=== PATIENT | male | born 1935 | race American Indian/Alaskan Native ===

== ENCOUNTER 2017-05-22 15:42 | Outpatient (CLI) | payer MEDICARE, OTHER ==
--- NOTE | 2017-05-24 09:33 | Vascular Lab Report ---
LOWER EXTREMITY VENOUS DUPLEX: REASON FOR EXAM: Pain and swelling of the lower extremities. 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 No acute DVT is seen. The remaining veins visualized are freely compressible without evidence of internal echogenicity. Spontaneous and phasic flow is present proximally. COMMENTS ON THE LEFT: All veins visualized are freely compressible without evidence of internal echogenicity. Flow is spontaneous and phasic throughout. 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 No acute DVT seen in either lower extremity.
== END 2017-05-22 15:43 | disposition home or self-care (01) ==
LOC: VAS 15:42
PROVIDERS: ATTEND Family Medicine
DX: I82.811 Embolism and thrombosis of superficial veins of right lower extremity (principal); M79.662 Pain in left lower leg; M79.89 Other specified soft tissue disorders

== ENCOUNTER 2018-05-10 10:30 | Inpatient (IN) | payer MEDICARE, OTHER ==
[2018-05-10] MEDS ORDERED: NACL 0.9% 1000 ML 1,000 ML IV ONE (10:49)
[2018-05-10] MEDS ORDERED: PROTONIX IV ONE (10:56)
--- NOTE | 2018-05-10 10:58 | Emergency Department Report ---
HPI - General Chief Complaint: GI Bleed Time Seen by Provider: 05/10/18 10:50 - HPI HPI: 82-year-old -[place] male presents to the emergency department with a complaint of rectal bleeding and hypotension. The patient was at his primary care physician's office, Dr. Saini, when he was found to have low blood pressure. EMS was called and found the patient to have a blood pressure of 66/39. He was given a 500 mL bolus and his blood pressure is currently 110/54. He denies any current abdominal pain but says that he has had some intermittent ly over the past 2 days, which is when the bleeding started. He does have a history of some type of gastric or intestinal ulcer and last had a GI bleed in 2016 and had some type of procedure done at [facility]. His professor of latin american studies is Dr. Sweet. He has not taken anything for his symptoms hortencia or to arrival. ED Past Medical Hx - Past Medical History Previous Medical History?: Yes Hx Hypertension: Yes (on coreg and amylodipine) Hx Heart Attack/AMI: No Hx Congestive Heart Failure: Yes Hx Diabetes: Yes Hx Deep Vein Thrombosis: Yes (blood clot right leg 2006) Hx GERD: Yes Hx Renal Disease: Yes (Cr. 1.8 K 4.2) Hx Arthritis: Yes (RIGHT HIP) Hx Seizures: No Hx Asthma: No Hx COPD: No - Surgical History Hx Coronary Stent: Yes (CARDIAC [id number]) Hx Pacemaker: Yes (x 10 years functioning well pacing) Hx Internal Defibrillator: No - Social History Smoking Status: Former Smoker Substance Use Type: None - Medications Home Medications: Home Medications Medication Instructions Recorded Confirmed Last Taken Type Furosemide [Lasix] 40 mg PO DAILY 05/21/13 01/18/15 10/15/14 History Lisinopril [Zestril] 40 mg PO DAILY 05/21/13 01/18/15 10/15/14 History Rivaroxaban [Xarelto] 20 mg PO QDAY 04/26/14 01/18/15 10/16/14 History Amlodipine Besylate [amLODIPine 5 mg PO DAILY #30 powder 05/02/14 01/18/15 10/15/14 Rx Besylate] Simvastatin 20 mg PO HS #30 tablet 05/02/14 01/18/15 10/15/14 Rx Aspirin EC [Aspirin Enteric Coated 81 mg PO QDAY #30 tablet 01/21/15 Unknown Rx TAB] Carvedilol [Coreg] 25 mg PO BID #60 tablet 01/21/15 Unknown Rx Digoxin [Lanoxin] 0.125 mg PO DAILY #30 tablet 01/21/15 Unknown Rx Insulin Glargine,Hum.rec.anlog 30 unit SQ HS #2 ml 01/21/15 Unknown Rx [Lantus Solostar] Iron Fum,Ps/Folic/Bcomp,C No.9 1 each PO DAILY #30 capsule 01/21/15 Unknown Rx [Integra Plus Capsule] Pantoprazole [Protonix TAB] 40 mg PO QDAY #30 tablet 01/21/15 Unknown Rx Sitagliptin Phosphate [Januvia] 50 mg PO DAILY #30 tablet 01/21/15 Unknown Rx glipiZIDE [glipiZIDE XL] 10 mg PO BID #60 tab.er.24 01/21/15 Unknown Rx raNITIdine HCl [Zantac 300 MG TAB] 300 mg PO DAILY #30 tablet 01/21/15 Unknown Rx ED Review of Systems ROS: Stated complaint: HYPOTENSION Other details as noted in HPI Comment: All other systems reviewed and negative Constitutional: denies: chills, fever Eyes: denies: eye pain, vision change ENT: denies: ear pain, throat pain Respiratory: denies: cough, shortness of breath Cardiovascular: denies: chest pain, palpitations Gastrointestinal: abdominal pain, melena. denies: vomiting Genitourinary: denies: urgency, dysuria Musculoskeletal: denies: back pain, arthralgia Skin: denies: rash, lesions Neurological: denies: headache, weakness Physical Exam - Physical Exam Vital Signs: Vital Signs 05/10/18 10:45 Pulse Rate 81 Respiratory 17 Rate Blood Pressure 110/54 O2 Sat by Pulse 99 Oximetry Physical Exam: GENERAL: The patient is well-developed well-nourished. HEENT: Normocephalic. Atraumatic. Patient has moist mucous membranes. EYES: Extraocular motions are intact. Pupils are equal and reactive to light bilaterally. NECK: Supple. Trachea is midline. CHEST/LUNGS: Clear to auscultation. There is no respiratory distress noted. HEART/CARDIOVASCULAR: Regular. There is no tachycardia. There is no obvious murmur. ABDOMEN: Abdomen is soft, nontender. Patient has normal bowel sounds. There is no abdominal distention. SKIN: Skin is warm and dry. NEURO: The patient is awake, alert, and oriented. The patient is cooperative. The patient has no focal neurologic deficits. The patient has normal speech. MUSCULOSKELETAL: There is no tenderness or deformity. There is no limitation range of motion. There is no evidence of acute injury. RECTAL: No hemorrhoids or lesions seen. Patient does have melanotic stool that is positive on guaiac testing. ED Course Vital Signs 05/10/18 10:45 Pulse Rate 81 Respiratory 17 Rate Blood Pressure 110/54 O2 Sat by Pulse 99 Oximetry - Consultations Consultation #1: 05/10/18 17:19 Earlier today I spoke with the professor of latin american studies on-call, Dr. Ponce. He agrees with the plan for a Protonix bolus and drip and he will evaluate the patient for endoscopy and will consult on the patient. ED Medical Decision Making - Lab Data Result diagrams: 05/10/18 10:59 05/10/18 13:07 - Radiology Data Radiology results: image reviewed interpreted by me: X-ray of the abdomen shows nonspecific nonobstructive bowel gas - Medical Decision Making Patient presents to the emergency department with some melena and he had an episode of hypotension and his primary care physician's office. Patient's blood pressure has been stable since arrival to the emergency department. Labs have been mostly unremarkable except for a leukocytosis of 18,000. His hemoglobin appears stable as well at about 13. He was placed on a Protonix bolus and drip. Gastroenterology was contacted and will consult on the patient and potentially will take him for endoscopy today. The patient will be admitted to the hospital for further evaluation and treatment was accepted for admission by the hospitalist, Dr. Osullivan. - Differential Diagnosis diverticulosis, gastric or duodenal ulcer, malignancy, peptic ulcer disease Critical Care Time: Yes Critical care time in (mins) excluding proc time.: 31 Critical care attestation.: If time is entered above; I have spent that time in minutes in the direct care of this critically ill patient, excluding procedure time. Critical care time was spent on this patient during his initial evaluation, multiple re- evaluations, ordering and interpretation of labs and imaging, ordering of PPI bolus and drip, discussion with the professor of latin american studies. Critical Care Time: 31 minutes ED Disposition Clinical Impression: Melena GI bleeding Qualifiers: GI bleed type/associated pathology: melena Qualified Code(s): K92.1 - Melena Disposition: [id number] OP ADMIT IP TO THIS HOSP Is pt being admited?: Yes Condition: Fair
[2018-05-10] MEDS ORDERED: PROTONIX 80 MG in NACL 0.9% 100 ML IV SCH (11:00)
--- NOTE | 2018-05-10 12:09 | XRay Report ---
ABDOMEN, 2 views: History: Abdominal pain. There is no evidence of free air beneath the diaphragms. The gas pattern within the abdomen is unremarkable. There is no evidence of bowel dilatation, significant air-fluid levels, or pathologic calcifications. Organ shadows are unremarkable. IMPRESSION: Unremarkable abdomen.
[2018-05-10 12:21] LABS: Basophils % (Auto) 0.1 % (0.0-1.8); Eosinophils % (Auto) 0.1 % (0.0-4.3); Hematocrit 42.9 % (35.5-45.6); Hemoglobin 13.7 gm/dl (11.8-15.2); Lymphocytes # (Auto) 1.7 K/mm3 (1.2-5.4); Lymphocytes % (Auto) 9.2 % (13.4-35.0); Mean Corpuscular HGB Conc 32 % (32-34); Mean Corpuscular Volume 79 fl (84-94); Monocytes # (Auto) 1.3 K/mm3 (0.0-0.8); Monocytes % (Auto) 6.7 % (0.0-7.3); Platelet Count 175 K/mm3 (140-440); Red Blood Count 5.41 M/mm3 (3.65-5.03); Red Cell Distribution Width 15.9 % (13.2-15.2)
[2018-05-10 12:28] LABS: INR 1.17 (0.87-1.13)
[2018-05-10 12:29] LABS: Partial Thromboplastin Time 28.5 Sec. (24.2-36.6)
[2018-05-10 12:53] LABS: Alanine Aminotransferase TNR units/L (7-56); Albumin TNR g/dL (3.9-5); BUN/Creatinine Ratio TNR; Blood Urea Nitrogen TNR mg/dL (9-20); Calcium TNR mg/dL (8.4-10.2)
[2018-05-10 12:54] LABS: Hemolysis Index TNR
[2018-05-10 14:10] LABS: Albumin 3.2 g/dL (3.9-5); BUN/Creatinine Ratio 48; Blood Urea Nitrogen 58 mg/dL (9-20); Calcium 8.6 mg/dL (8.4-10.2); Hemolysis Index 162
[2018-05-10 14:33] LABS: Alanine Aminotransferase 14 units/L (7-56)
--- NOTE | 2018-05-10 16:55 | Anesthesia Day of Surgery ---
Anesthesia Day of Surgery - Day of Surgery Patient Examined: Yes Patient H&P Reviewed: Yes Patient is NPO: Yes Beta Blockers: No (pt has been having hypotension )
[2018-05-10] MEDS ORDERED: DIPRIVAN 10 MG/ML IV ONE (16:56)
[2018-05-10] MEDS ORDERED: VERSED ONE (16:56)
[2018-05-10] MEDS ORDERED: XYLOCAINE 2% INFILTRATI ONE (16:57)
--- NOTE | 2018-05-10 16:57 | Anesthesia Consultation ---
Anesthesia Consult and Med Hx Date of service: 05/10/18 - Airway Anesthetic Teeth Evaluation: Good ROM Head & Neck: Adequate Mental/Hyoid Distance: Adequate Mallampati Class: Class III Intubation Access Assessment: Good - Pulmonary Exam CTA: Yes - Cardiac Exam Cardiac Exam: No Murmur - Pre-Operative Health Status ASA Pre-Surgery Classification: ASA3 Proposed Anesthetic Plan: MAC - Pulmonary Hx Smoking: Yes (quit 1969) Hx Asthma: No COPD: No Hx Sleep Apnea: No - Cardiovascular System Hx Hypertension: Yes (on coreg and amylodipine) Hx Coronary Artery Disease: Yes (has stent in place. ) Hx Heart Attack/AMI: No Hx Angina: No Hx Cardia Arrhythmia: Yes (atrial fibrillation, on Xarelto) Hx Pacemaker: Yes (x 10 years functioning well pacing) Hx Internal Defibrillator: No Hx Heart Murmur: Yes Hx Peripheral Vascular Disease: Yes (both legs) - Central Nervous System Hx Seizures: No CVA: No Hx Psychiatric Problems: No - Gastrointestinal Hx Ulcer: Yes - Endocrine Hx Renal Disease: Yes (Cr. 1.8 K 4.2) Hx Insulin Dependent Diabetes: Yes - Hematic Hx Anemia: Yes - Other Systems Hx Cancer: Yes (prostate , s/p prostate surgery)
[2018-05-10] MEDS ORDERED: WATER FOR IRRIG STERILE IR ONE (17:48)
--- NOTE | 2018-05-10 18:00 | Gastroenterology Consultation ---
History of Present Illness - Reason for Consult Consult date: 05/10/18 melena Requesting physician: ELIZABETH CHATMAN - History of Present Illness Mr Mike is a pleasant 82 yo male with history PUD per his report presenting with fatigue and melena. Patient reports melena with black stools since Monday, about 2-3BM/day no overt bleeding, no significant abdominal pain though does report nausea which is mild and post-prandial and intermittent without alleviating factors. Reports also feeling very fatigue and weak. Not on blood thinners at home. Was hypotensive in the ER, Hgb was normal at 13 though that is prior to resuscitation and suspect repeat will be lower. - Past Medical History Hx Hypertension: Yes (on coreg and amylodipine) Hx Congestive Heart Failure: Yes Hx Diabetes: Yes Hx Deep Vein Thrombosis: Yes (blood clot right leg 2006) Hx GERD: Yes Hx Renal Disease: Yes (Cr. 1.8 K 4.2) Hx Arthritis: Yes (RIGHT HIP) - Surgical History Hx Coronary Stent: Yes (CARDIAC [id number]) Hx Pacemaker: Yes (x 10 years functioning well pacing) Hx Internal Defibrillator: No - Social History Smoking Status: Former Smoker Substance Use Type: None Past History Past Medical History: No medical history, other (see above, with addition of PUD) Past Surgical History: Other (see above) Social history: other (see above) Family history: other (no history gastric CA) Medications and Allergies Allergies Allergy/AdvReac Type Severity Reaction Status Date / Time No Known Allergies Allergy Verified 07/15/13 12:09 Home Medications Medication Instructions Recorded Confirmed Last Taken Type Furosemide [Lasix] 40 mg PO DAILY 05/21/13 01/18/15 10/15/14 History Lisinopril [Zestril] 40 mg PO DAILY 05/21/13 01/18/15 10/15/14 History Amlodipine Besylate [amLODIPine 5 mg PO DAILY #30 powder 05/02/14 01/18/15 10/15/14 Rx Besylate] Simvastatin 20 mg PO HS #30 tablet 05/02/14 01/18/15 10/15/14 Rx Aspirin EC [Aspirin Enteric Coated 81 mg PO QDAY #30 tablet 01/21/15 Unknown Rx TAB] Carvedilol [Coreg] 25 mg PO BID #60 tablet 01/21/15 Unknown Rx Digoxin [Lanoxin] 0.125 mg PO DAILY #30 tablet 01/21/15 Unknown Rx Insulin Glargine,Hum.rec.anlog 30 unit SQ HS #2 ml 01/21/15 Unknown Rx [Lantus Solostar] Iron Fum,Ps/Folic/Bcomp,C No.9 1 each PO DAILY #30 capsule 01/21/15 Unknown Rx [Integra Plus Capsule] Pantoprazole [Protonix TAB] 40 mg PO QDAY #30 tablet 01/21/15 Unknown Rx Sitagliptin Phosphate [Januvia] 50 mg PO DAILY #30 tablet 01/21/15 Unknown Rx glipiZIDE [glipiZIDE XL] 10 mg PO BID #60 tab.er.24 01/21/15 Unknown Rx raNITIdine HCl [Zantac 300 MG TAB] 300 mg PO DAILY #30 tablet 01/21/15 Unknown Rx Active Meds: Active Medications Pantoprazole Sodium 80 mg/ (Sodium Chloride) 100 mls @ 10 mls/hr IV DIRECT FILI Last Admin: 05/10/18 11:45 Dose: 8 mg/hr, 10 mls/hr Documented by: Sodium Chloride (Nacl 0.9% 1000 Ml) 1,000 mls @ 50 mls/hr IV DIRECT FILI Review of Systems - Review of Systems All systems: negative (10 systems reviewed and negative except as mentioned above in the HPI) Exam - Constitutional Vital Signs: Temp Pulse Resp BP Pulse Ox 97.7 F 87 13 121/72 100 05/10/18 16:45 05/10/18 16:45 05/10/18 16:45 05/10/18 16:45 05/10/18 16:45 General appearance: no acute distress - EENT Eyes: PERRL ENT: hearing intact - Neck Neck: supple - Respiratory Respiratory: bilateral: CTA - Cardiovascular Rhythm: regular Extremities: No edema - Gastrointestinal General gastrointestinal: Present: soft, non-tender Rectal Exam: deferred - Integumentary Integumentary: Present: warm, dry - Musculoskeletal Musculoskeletal: normal - Neurologic Neurological: alert and oriented x3 - Psychiatric Psychiatric: appropriate mood/affect - Labs CBC & Chem 7: 05/10/18 10:59 05/10/18 13:07 Lab Results: Laboratory Results - last 24 hr 05/10/18 05/10/18 05/10/18 10:59 10:59 10:59 WBC 18.9 H RBC 5.41 H Hgb 13.7 Hct 42.9 MCV 79 L MCH 25 L MCHC 32 RDW 15.9 H Plt Count 175 Lymph % (Auto) 9.2 L Polk % (Auto) 6.7 Eos % (Auto) 0.1 Baso % (Auto) 0.1 Lymph # 1.7 Polk # 1.3 H Eos # 0.0 Baso # 0.0 Seg Neutrophils % 83.9 H Seg Neutrophils # 15.9 H PT 15.7 H INR 1.17 H APTT 28.5 Sodium TNR Potassium TNR Chloride TNR Carbon Dioxide TNR Anion Gap TNR BUN TNR Creatinine TNR Estimated GFR TNR BUN/Creatinine Ratio TNR Glucose TNR Calcium TNR Total Bilirubin TNR AST TNR ALT TNR Alkaline Phosphatase TNR Total Protein TNR Albumin TNR Albumin/Globulin Ratio TNR Lipase TNR Blood Type Antibody Screen 05/10/18 05/10/18 10:59 13:07 WBC RBC Hgb Hct MCV MCH MCHC RDW Plt Count Lymph % (Auto) Polk % (Auto) Eos % (Auto) Baso % (Auto) Lymph # Polk # Eos # Baso # Seg Neutrophils % Seg Neutrophils # PT INR APTT Sodium 133 L Potassium 5.5 H Chloride 100.5 Carbon Dioxide 19 L Anion Gap 19 BUN 58 H Creatinine 1.2 Estimated GFR > 60 BUN/Creatinine Ratio 48 Glucose 149 H Calcium 8.6 Total Bilirubin 0.80 AST 36 ALT 14 Alkaline Phosphatase 73 Total Protein 7.0 Albumin 3.2 L Albumin/Globulin Ratio 0.8 Lipase 60 Blood Type B POSITIVE Antibody Screen Negative Assessment and Plan 1. Melena 2. Hypotension 3. Personal history peptic ulcer disease Patient at elevated risk for UGI bleed as source of melena, and having active melena, therefore requires urgent EGD for suspicion for active GI bleed. Suspect the repeat Hgb will be lower as he is fluid resuscitated. Highest likelihood is PUD, also in Ddx is AVM, malignancy, etc. Continue PPI, final recs based upon results from urgent EGD
[2018-05-10] MEDS ORDERED: NEO SYNEPHRINE/NS Syringe(OR USE) IV ONE (18:10)
--- NOTE | 2018-05-10 18:10 | Operative Report ---
Operative Report Operative Report: Date 05/10/18 SURGEON: Godfrey Ponce MD EGD with biopsy REPORT PREOPERATIVE DIAGNOSIS and POSTOPERATIVE DIAGNOSIS: Melena, upper GI bleed ESTIMATED BLOOD LOSS: minimal DESCRIPTION OF PROCEDURE: A high-resolution EGD scope was passed through the oropharynx, esophagus, stomach, and second portion of duodenum. The scope was carefully withdrawn. Retroflexion was performed in the stomach. At the end of the procedure, the scope was cleaned using normal technique. Vital signs monitored continuously throughout. SEDATION: Provided by Anesthesiology [facility]. COMPLICATIONS: None. FINDINGS: * Normal second portion of the duodenum * Very large, cratered and deep ulcer in the anterior wall of the duodenal bulb, about 2cm in diameter, overlying heme but no active bleeding and no visible vessel. Edges were heaped up. Multiple biopsies taken from the edges of the ulcer (not the bed due to concern for causing rupture/bleeding) * Severe gastritis of the antrum and body with erosions and erythema and edema. Biopsies were taken to rule out H. Pylori infection. A total of 6 biopsies were taken, 2 from the antrum, 1 from the incisura, 2 from the body. * GE Junction at 45cm from the incisors * Remainder of the exam was normal RECOMMENDATIONS: * PPI drip for 48 hours and TID carafate for the next 30 days, monitor Hgb Q12 hours. Then if stable and no more bleeding switch to protonix 40mg PO BID and discharge home with close outpatient follow up in 1-2 weeks. * F/u path results * Will start on full liquid diet
[2018-05-10] MEDS: NACL 0.9% 1000 ML 1,000 ML IV SCH (19:54)
[2018-05-10] MEDS: CARAFATE PO SCH (22:40)
--- NOTE | 2018-05-11 06:57 | History and Physical Report ---
History of Present Illness Date of examination: 05/11/18 Date of admission: 05/10/18 13:44 Chief complaint: Rectal bleeding and hypotension. History of present illness: Patient is an 82-year-old gentleman who has a history of recurrent GI bleeding from duodenal ulcer last one being in 2016, hypertension, congestive heart failure status post AICD placement 10 years ago, coronary artery disease status post stent placement, diabetes, DVT, gastroesophageal reflux disease, and arthritis presented to my office yesterday with a history of melena, feeling weak and fatigued. Patient could not maintain an alert moment in the office, always falling asleep in between discussions. Patient was also found to be hypertensive. EMS was called in. Patient was transfered to the emergency department of [facility] where blood pressure was found to be 66/39. He was given 500 mL bolus of normal saline. Blood pressure improved to 110/54. Admission was requested. Patient denies anyh persistent abdominal pain, though occassional epigastric pain some days prior to presentation. Nauseated but no vomiting. Denies any chest pain, orthopnea or paroxysmal n octurnal dyspnea. In emergency department hemoglobin was 13.7 Hct 42.9. Hyperkalemia of 5.5. Leukocytosis of 18.9. BUN was 58 creatinine was 1.2. Admission was requested. GI consult was obtained. EGD was done. A deep cretered 2 cm ulcer was identified in the anterior wall of the duodenum. No active bleeding. Multiple biopsies taken. Patient was placed on IV Protonix with Carafate. Past History Past Medical History: CAD, diabetes, heart failure, hyperlipidemia, renal failure, other (see above, with addition of PUD) Past Surgical History: Other (see above) Social history: other (see above). denies: smoking, alcohol abuse, prescription drug abuse, IV drug use Family history: other (no history gastric CA) Medications and Allergies Allergies Allergy/AdvReac Type Severity Reaction Status Date / Time No Known Allergies Allergy Verified 07/15/13 12:09 Home Medications Medication Instructions Recorded Confirmed Last Taken Type Furosemide [Lasix] 40 mg PO DAILY 05/21/13 05/10/18 05/10/18 07:00 History Lisinopril [Zestril] 40 mg PO DAILY 05/21/13 05/10/18 05/10/18 07:00 History Amlodipine Besylate [amLODIPine 5 mg PO DAILY #30 powder 05/02/14 05/10/18 05/10/18 07:00 Rx Besylate] Simvastatin 20 mg PO HS #30 tablet 05/02/14 05/10/18 05/10/18 07:00 Rx Aspirin EC [Aspirin Enteric Coated 81 mg PO QDAY #30 tablet 01/21/15 05/10/18 05/10/18 07:00 Rx TAB] Carvedilol [Coreg] 25 mg PO BID #60 tablet 01/21/15 05/10/18 05/10/18 07:00 Rx Digoxin [Lanoxin] 0.125 mg PO DAILY #30 tablet 01/21/15 05/10/18 05/10/18 07:00 Rx Insulin Degludec [Tresiba 100 units SQ HS MDD 20 05/10/18 05/10/18 05/09/18 22:00 History Flextouch U-100] 20 units Active Meds: Active Medications Pantoprazole Sodium 80 mg/ (Sodium Chloride) 100 mls @ 10 mls/hr IV DIRECT FILI Last Admin: 05/10/18 11:45 Dose: 8 mg/hr, 10 mls/hr Documented by: Sodium Chloride (Nacl 0.9% 1000 Ml) 1,000 mls @ 50 mls/hr IV DIRECT FILI Last Admin: 05/10/18 19:54 Dose: 50 mls/hr Documented by: Sucralfate (Carafate) 1 gm PO ACHS FILI Last Admin: 05/10/18 22:40 Dose: 1 gm Documented by: Review of systems Constitutional: Well Nouridhed and Well developed. Head: NC/ AT Eyes: Denies any visual impairments. No discharge from the eyes Nose: Denies any rhinorrhea or epistaxis Throats: Denies any post nasal drainage. Ears: Denies any hearing deficits Cardiovascular system: Denies any chest pain, shortness of breath, orthopnea, paroxysmal nocturnal dyspnea, or palpitation. Respiratory system: Denies any cough, difficulty breathing, wheezing, pleuritic chest pain, Gastrointestinal system: Denies any abdominal pain, nausea vomiting, hematemesis has rectal bleeding. Neurological system: Denies any headache, slurred speech, facial droop, lateralizing weakness Genitalia system: Denies any dysuria, urinary frequency or urgency, urethral discharge Skin: No rashes, hyperpigmented spots. Hematological: Denies any cervical tenderness hemorrhages or petechia. Immunological: Denies any multiple septic spots, Lymphatic: Denies any generalized lymphadenopathy. Endocrine: Denies any polyuria, polydipsia, polyphagia. No heat or cold intolerance. Musculoskeletal system: No joint pain or swelling. Psych: No visual, tactile, auditory or hallucination Exam - Physical Exam Narrative exam: Constitutional: Well-nourished well-developed. In no distress Head: Normocephalic atraumatic Eyes: Pupils are equal round and reactive to light Nose: No enlarged turbinates, no septal deviation. Mouth: Moist mucous membranes. Neck: Supple no thyromegaly. No bruit. No JVD Heart: Regular rate and rhythm, S1-S2 normal. No rubs murmurs or gallop Lungs: Clear to auscultation bilaterally. no rales or rhonchi Abdomen: Soft, nontender. Bowel sound are present. Extremities: No edema, no cyanosis, no clubbing. Neuro: Alert oriented Oriented x3. No focal sensory or motor deficit. Skin: No rashes or hyperpigmented spots Musculoskeletal system: No joint pain or swelling Hematological: No petechia or subcutanous hemorrhages. Immunological: No multiple septic spots on the skin Lymphatic: No generalized lymphadenopathy Psychiatry: Euthymic. Calm. - Constitutional Vitals: Temp Pulse Resp BP Pulse Ox 97.8 F 87 20 120/69 91 05/11/18 01:51 05/11/18 01:53 05/11/18 01:51 05/11/18 01:51 05/11/18 01:53 Results - Labs CBC & Chem 7: 05/10/18 10:59 05/10/18 13:07 Labs: Abnormal lab results 05/10/18 05/10/18 05/10/18 Range/Units 10:59 10:59 13:07 WBC 18.9 H (4.5-11.0) K/mm3 RBC 5.41 H (3.65-5.03) M/mm3 MCV 79 L (84-94) fl MCH 25 L (28-32) pg RDW 15.9 H (13.2-15.2) % Lymph % (Auto) 9.2 L (13.4-35.0) % [place] # 1.3 H (0.0-0.8) K/mm3 Seg Neutrophils % 83.9 H (40.0-70.0) % Seg Neutrophils # 15.9 H (1.8-7.7) K/mm3 PT 15.7 H (12.2-14.9) Sec. INR 1.17 H (0.87-1.13) Sodium 133 L (137-145) mmol/L Potassium 5.5 H (3.6-5.0) mmol/L Carbon Dioxide 19 L (22-30) mmol/L BUN 58 H (9-20) mg/dL Glucose 149 H (75-100) mg/dL POC Glucose (70-105) Albumin 3.2 L (3.9-5) g/dL 05/10/18 Range/Units 22:47 WBC (4.5-11.0) K/mm3 RBC (3.65-5.03) M/mm3 MCV (84-94) fl MCH (28-32) pg RDW (13.2-15.2) % Lymph % (Auto) (13.4-35.0) % [place] # (0.0-0.8) K/mm3 Seg Neutrophils % (40.0-70.0) % Seg Neutrophils # (1.8-7.7) K/mm3 PT (12.2-14.9) Sec. INR (0.87-1.13) Sodium (137-145) mmol/L Potassium (3.6-5.0) mmol/L Carbon Dioxide (22-30) mmol/L BUN (9-20) mg/dL Glucose (75-100) mg/dL POC Glucose 140 H (70-105) Albumin (3.9-5) g/dL Assessment and Plan Patient is an 82-year-old gentleman who has a history of recurrent GI bleeding from duodenal ulcer last one being in 2016, hypertension, congestive heart failure status post AICD placement 10 years ago, coronary artery disease status post stent placement, diabetes, DVT, gastroesophageal reflux disease, and arthritis presented to my office yesterday with a history of melena, feeling weak and fatigued. Patient could not maintain an alert moment in the office, always falling asleep in between discussions. Patient was also found to be hypertensive. EMS was called in. Patient was transfered to the emergency department of [facility] where blood pressure was found to be 66/39. He was given 500 mL bolus of normal saline. Blood pressure improved to 110/54. Admission was requested. Patient denies anyh persistent abdominal pain, though occassional epigastric pain some days prior to presentation. Nauseated but no vomiting. Denies any chest pain, orthopnea or paroxysmal n octurnal dyspnea. In emergency department hemoglobin was 13.7 Hct 42.9. Hyperkalemia of 5.5. Leukocytosis of 18.9. BUN was 58 creatinine was 1.2. Admission was requested. GI consult was obtained. EGD was done. A deep cretered 2 cm ulcer was identified in the anterior wall of the duodenum. No active bleeding. Multiple biopsies taken. Patient was placed on IV Protonix with Carafate. Assessment and plan - GI bleeding from peptic ulcer EGD showed 2 cm anteriorly located in the antrum. GI input appreciated Comments patient on clear liquids status post EGD Continue with IV Protonix, sucralfate. Hold all anti-coagulation on antiplatelet - Peptic ulcer Management of supple - Diabetes mellitus Consistent carbohydrate diet Obtain A1c, urine microalbumin and lipid profile, sliding scale - High hyperkalemia We will trend. We'll write give insulin and D50. Avoid Kayexalate because of GI bleeding - Leukocytosis Possibly from marginalization We'll repeat. W/u if persistent - Acute on chronic renal insufficiency Anticipate improvement with IV hydration - DVT prophylaxis with SCDs only Avoid anticoagulation because of GI bleeding Disposition: DC home when patient is clinically stable Spent 40 minutes during this admission process
[2018-05-11 07:15] LABS: Basophils % (Auto) 0.2 % (0.0-1.8); Eosinophils % (Auto) 0.3 % (0.0-4.3); Hematocrit 32.7 % (35.5-45.6); Hemoglobin 10.5 gm/dl (11.8-15.2); Lymphocytes # (Auto) 1.3 K/mm3 (1.2-5.4); Lymphocytes % (Auto) 7.4 % (13.4-35.0); Mean Corpuscular HGB Conc 32 % (32-34); Mean Corpuscular Volume 79 fl (84-94); Monocytes # (Auto) 1.6 K/mm3 (0.0-0.8); Monocytes % (Auto) 9.5 % (0.0-7.3); Platelet Count 169 K/mm3 (140-440); Red Blood Count 4.13 M/mm3 (3.65-5.03); Red Cell Distribution Width 15.7 % (13.2-15.2)
[2018-05-11 07:32] LABS: Alanine Aminotransferase 11 units/L (7-56); Albumin 2.7 g/dL (3.9-5); BUN/Creatinine Ratio 44; Blood Urea Nitrogen 53 mg/dL (9-20); Calcium 8.3 mg/dL (8.4-10.2); Hemolysis Index 22
[2018-05-11] MEDS: CARAFATE PO SCH ×3 (08:46→21:45)
[2018-05-11 10:36] LABS: Hemoglobin 10.2 gm/dl (11.8-15.2)
--- NOTE | 2018-05-11 15:50 | Gastroenterology Progress Note ---
<JOEY DORAN - Last Filed: 05/11/18 15:51> Assessment and Plan 1.GI bleed 2.melena 3.H/o PUD -H/H 10.2/32.0-stable -continue to monitor H/H and transfuse as needed -reports BM today with black stool (likely sequela w H/H stable) -s/p EGD yesterday that showed a very large cratered ulcer in the anterior wall of the duodenal bulb (2cm) with overlying heme but no active bleeding or visible vessel -bx result pending- f/u in clinic -clinically, patient is stable. Denies abd pain or N/V. Tolerating full liquids. -okay to advance diet to GI soft -continue PPI drip today then transition to BID tomorrow -avoid NSAIDS -continue supportive care -will follow Subjective Date of service: 05/11/18 Principal diagnosis: GI bleed Interval history: Patient resting in bed w/o acute distress. Reports BM today with black stool. Denies abd pain or N/V . Tolerating full liquids. Objective - Constitutional Vitals: Temp Pulse Resp BP Pulse Ox 98.5 F 69 18 97/58 96 05/11/18 07:42 05/11/18 07:42 05/11/18 07:42 05/11/18 07:42 05/11/18 07:42 - Labs CBC & Chem 7: 05/11/18 10:10 05/11/18 07:01 Labs: Laboratory Results - last 24 hr 05/10/18 05/11/18 05/11/18 22:47 07:01 07:05 WBC 17.2 H RBC 4.13 Hgb 10.5 L D Hct 32.7 L D MCV 79 L MCH 25 L MCHC 32 RDW 15.7 H Plt Count 169 Lymph % (Auto) 7.4 L [place] % (Auto) 9.5 H Eos % (Auto) 0.3 Baso % (Auto) 0.2 Lymph # 1.3 [place] # 1.6 H Eos # 0.0 Baso # 0.0 Seg Neutrophils % 82.6 H Seg Neutrophils # 14.2 H Sodium 136 L Potassium 4.5 Chloride 106.7 Carbon Dioxide 18 L Anion Gap 16 BUN 53 H Creatinine 1.2 Estimated GFR > 60 BUN/Creatinine Ratio 44 Glucose 154 H POC Glucose 140 H Calcium 8.3 L Total Bilirubin 0.50 AST 21 ALT 11 Alkaline Phosphatase 62 Total Protein 5.8 L Albumin 2.7 L Albumin/Globulin Ratio 0.9 05/11/18 05/11/18 05/11/18 07:45 10:10 11:23 WBC RBC Hgb 10.2 L Hct 32.0 L MCV MCH MCHC RDW Plt Count Lymph % (Auto) [place] % (Auto) Eos % (Auto) Baso % (Auto) Lymph # [place] # Eos # Baso # Seg Neutrophils % Seg Neutrophils # Sodium Potassium Chloride Carbon Dioxide Anion Gap BUN Creatinine Estimated GFR BUN/Creatinine Ratio Glucose POC Glucose 150 H 190 H Calcium Total Bilirubin AST ALT Alkaline Phosphatase Total Protein Albumin Albumin/Globulin Ratio <MIKE CARLTON - Last Filed: 05/11/18 18:26> Assessment and Plan Patient seen in examined, agree with advanced practitioner's evaluation, assessment, and plan, with the following additions: PAtient reports still dizzy with getting up, but Hgb stable. Does report a dark stool today. Consistent with symptomatic anemia from recent duodenal ulcer bleed but Hgb stable so likely the melena is just the blood from yesterday evacuating and not active bleeding. Complete 48 hours PPI drip and carafate, and then as long as Hgb stable and no more melena can discharge home on BID PPI and TID carafate and outpatient follow up with me in the office in 2 weeks. Objective - Constitutional Vitals: Temp Pulse Resp BP Pulse Ox 98.5 F 69 18 97/58 96 05/11/18 07:42 05/11/18 07:42 05/11/18 07:42 05/11/18 07:42 05/11/18 07:42 - Labs CBC & Chem 7: 05/11/18 10:10 05/11/18 07:01 Labs: Laboratory Results - last 24 hr 05/10/18 05/11/18 05/11/18 22:47 07:01 07:05 WBC 17.2 H RBC 4.13 Hgb 10.5 L D Hct 32.7 L D MCV 79 L MCH 25 L MCHC 32 RDW 15.7 H Plt Count 169 Lymph % (Auto) 7.4 L [place] % (Auto) 9.5 H Eos % (Auto) 0.3 Baso % (Auto) 0.2 Lymph # 1.3 [place] # 1.6 H Eos # 0.0 Baso # 0.0 Seg Neutrophils % 82.6 H Seg Neutrophils # 14.2 H Sodium 136 L Potassium 4.5 Chloride 106.7 Carbon Dioxide 18 L Anion Gap 16 BUN 53 H Creatinine 1.2 Estimated GFR > 60 BUN/Creatinine Ratio 44 Glucose 154 H POC Glucose 140 H Calcium 8.3 L Total Bilirubin 0.50 AST 21 ALT 11 Alkaline Phosphatase 62 Total Protein 5.8 L Albumin 2.7 L Albumin/Globulin Ratio 0.9 05/11/18 05/11/18 05/11/18 07:45 10:10 11:23 WBC RBC Hgb 10.2 L Hct 32.0 L MCV MCH MCHC RDW Plt Count Lymph % (Auto) [place] % (Auto) Eos % (Auto) Baso % (Auto) Lymph # [place] # Eos # Baso # Seg Neutrophils % Seg Neutrophils # Sodium Potassium Chloride Carbon Dioxide Anion Gap BUN Creatinine Estimated GFR BUN/Creatinine Ratio Glucose POC Glucose 150 H 190 H Calcium Total Bilirubin AST ALT Alkaline Phosphatase Total Protein Albumin Albumin/Globulin Ratio 05/11/18 16:33 WBC RBC Hgb Hct MCV MCH MCHC RDW Plt Count Lymph % (Auto) [place] % (Auto) Eos % (Auto) Baso % (Auto) Lymph # [place] # Eos # Baso # Seg Neutrophils % Seg Neutrophils # Sodium Potassium Chloride Carbon Dioxide Anion Gap BUN Creatinine Estimated GFR BUN/Creatinine Ratio Glucose POC Glucose 169 H Calcium Total Bilirubin AST ALT Alkaline Phosphatase Total Protein Albumin Albumin/Globulin Ratio
[2018-05-12 05:57] LABS: Hematocrit TNR % (35.5-45.6); Hemoglobin TNR gm/dl (11.8-15.2)
[2018-05-12 07:26] LABS: Hematocrit 25.7 % (35.5-45.6); Hemoglobin 8.2 gm/dl (11.8-15.2)
[2018-05-12] MEDS: CARAFATE PO SCH ×4 (08:02→22:06)
--- NOTE | 2018-05-12 10:20 | Gastroenterology Progress Note ---
Assessment and Plan GI: pt w/ anemia and PUD on EGD - noted decrease h/h overnight w/o other signs active bleeding - PPI iv bid - repeat h/h this pm and in am - continue other meds and diet - if h/h stable in am ok to d/c from GI standpoint - will follow Subjective Date of service: 05/12/18 Principal diagnosis: GI bleed Interval history: - reports some dark stools, denies other complaints Objective - Constitutional Vitals: Temp Pulse Resp BP Pulse Ox 98.0 F 74 20 102/55 100 05/12/18 02:23 05/11/18 13:52 05/12/18 02:23 05/12/18 02:23 05/11/18 13:52 General appearance: no acute distress - EENT Eyes: PERRL - Neck Neck: supple - Respiratory Respiratory: bilateral: CTA - Cardiovascular Rhythm: regular Heart Sounds: Present: S1 & S2 - Gastrointestinal General gastrointestinal: Present: soft, non-tender, non-distended - Labs CBC & Chem 7: 05/12/18 06:51 05/11/18 07:01 Labs: Laboratory Results - last 24 hr 05/11/18 05/11/18 05/11/18 10:10 11:23 16:33 Hgb 10.2 L Hct 32.0 L POC Glucose 190 H 169 H 05/11/18 05/12/18 05/12/18 22:16 05:00 06:51 Hgb TNR 8.2 L Hct TNR 25.7 L D POC Glucose 178 H 05/12/18 08:21 Hgb Hct POC Glucose 191 H
[2018-05-12] MEDS: HumaLOG SUB-Q SCH ×2 (17:37→23:49)
--- NOTE | 2018-05-12 18:17 | Progress Note ---
Assessment and Plan Patient is an 82-year-old gentleman who has a history of recurrent GI bleeding from duodenal ulcer last one being in 2016, hypertension, congestive heart failure status post AICD placement 10 years ago, coronary artery disease status post stent placement, diabetes, DVT, gastroesophageal reflux disease, and arthritis presented to my office yesterday with a history of melena, feeling weak and fatigued. Patient could not maintain an alert moment in the office, always falling asleep in between discussions. Patient was also found to be hypertensive. EMS was called in. Patient was transfered to the emergency department of [facility] where blood pressure was found to be 66/39. He was given 500 mL bolus of normal saline. Blood pressure improved to 110/54. Admission was requested. Patient denies anyh persistent abdominal pain, though occassional epigastric pain some days prior to presentation. Nauseated but no vomiting. Denies any chest pain, orthopnea or paroxysmal nocturnal dyspnea. In emergency department hemoglobin was 13.7 Hct 42.9. Hyperkalemia of 5.5. Leukocytosis of 18.9. BUN was 58 creatinine was 1.2. Admission was requested. GI consult was obtained. EGD was done. A deep cretered 2 cm ulcer was identified in the anterior wall of the duodenum. No active bleeding. Multiple biopsies taken. Patient was placed on IV Protonix with Carafate. Assessment and plan - GI bleeding from peptic ulcer EGD showed 2 cm anteriorly located in the antrum. GI input appreciated Comments patient on clear liquids status post EGD Continue with IV Protonix, sucralfate. Hold all anti-coagulation on antiplatelet - Peptic ulcer disease Management as above - Diabetes mellitus Consistent carbohydrate diet Obtain A1c, urine microalbumin and lipid profile, sliding scale - High hyperkalemia - corrected We will trend. - Leukocytosis improvd. No fever, abdominal pain or Will obatin lactic acid, LDH, Alkalin phospohatase - Acute on chronic renal insufficiency Anticipate improvement with IV hydration - DVT prophylaxis with SCDs only Avoid anticoagulation because of GI bleeding Disposition: DC home when patient is clinically stable Spent 30 Subjective Date of service: 05/12/18 Principal diagnosis: GI bleed, anemia from acute blood loss Interval history: Denies any abdominal pain. No nause or vomiting. No melena stool Objective - Exam Narrative Exam: Constitutional: Well-nourished well-developed. In no distress Head: Normocephalic atraumatic Eyes: Pupils are equal round and reactive to light Nose: No enlarged turbinates, no septal deviation. Mouth: Moist mucous membranes. Neck: Supple no thyromegaly. No bruit. No JVD Heart: Regular rate and rhythm, S1-S2 normal. No rubs murmurs or gallop Lungs: Clear to auscultation bilaterally. no rales or rhonchi Abdomen: Soft, nontender. Bowel sound are present. Extremities: No edema, no cyanosis, no clubbing. Neuro: Alert oriented Oriented x3. No focal sensory or motor deficit. Skin: No rashes or hyperpigmented spots Musculoskeletal system: No joint pain or swelling Hematological: No petechia or subcutanous hemorrhages. Immunological: No multiple septic spots on the skin Lymphatic: No generalized lymphadenopathy Psychiatry: Euthymic. Calm. - Constitutional Vitals: Vital Signs - 12hr 05/12/18 05/12/18 08:15 13:28 Temperature 98.0 F 97.8 F Pulse Rate 82 83 Respiratory 18 18 Rate Blood Pressure 108/57 90/52 O2 Sat by Pulse 99 94 Oximetry - Labs CBC & Chem 7: 05/12/18 06:51 05/11/18 07:01 Labs: Abnormal lab results 05/11/18 05/12/18 05/12/18 Range/Units 22:16 06:51 08:21 Hgb 8.2 L (11.8-15.2) gm/dl Hct 25.7 L D (35.5-45.6) % POC Glucose 178 H 191 H (70-105) 05/12/18 05/12/18 Range/Units 11:49 17:02 Hgb (11.8-15.2) gm/dl Hct (35.5-45.6) % POC Glucose 226 H 312 H (70-105)
[2018-05-12 18:23] LABS: Hemoglobin 7.7 gm/dl (11.8-15.2)
[2018-05-12] MEDS ORDERED: NACL 0.9% 500 ML 500 ML IV ONE (19:08)
[2018-05-12] MEDS: LANOXIN PO SCH (20:25)
[2018-05-12] MEDS: LASIX PO SCH (20:26)
[2018-05-12] MEDS: COREG PO SCH (22:05)
[2018-05-12] MEDS: ZESTRIL PO SCH (23:41)
[2018-05-13] MEDS: NACL 0.9% 1000 ML 1,000 ML IV SCH ×2 (01:46→14:59)
--- NOTE | 2018-05-13 07:14 | Progress Note ---
Assessment and Plan Patient is an 82-year-old gentleman who has a history of recurrent GI bleeding from duodenal ulcer last one being in 2016, hypertension, congestive heart failure status post AICD placement 10 years ago, coronary artery disease status post stent placement, diabetes, DVT, gastroesophageal reflux disease, and arthritis presented to my office yesterday with a history of melena, feeling weak and fatigued. Patient could not maintain an alert moment in the office, always falling asleep in between discussions. Patient was also found to be hypertensive. EMS was called in. Patient was transfered to the emergency department of [facility] where blood pressure was found to be 66/39. He was given 500 mL bolus of normal saline. Blood pressure improved to 110/54. Admission was requested. Patient denies anyh persistent abdominal pain, though occassional epigastric pain some days prior to presentation. Nauseated but no vomiting. Denies any chest pain, orthopnea or paroxysmal nocturnal dyspnea. In emergency department hemoglobin was 13.7 Hct 42.9. Hyperkalemia of 5.5. Leukocytosis of 18.9. BUN was 58 creatinine was 1.2. Admission was requested. GI consult was obtained. EGD was done. A deep cretered 2 cm ulcer was identified in the anterior wall of the duodenum. No active bleeding. Multiple biopsies taken. Patient was placed on IV Protonix with Carafate. EGD done. 2cm duodenal ulcer identified. biopsies taken Assessment and plan - GI bleeding from peptic ulcer EGD showed 2 cm ulcer in the duodenum. GI input appreciated Comments patient on clear liquids status post EGD Continue with IV Protonix, sucralfate. Hold all anti-coagulation on antiplatelet - Anemia from bleeding duodenal ulcer s/p blood transfusion of one unit. Await post transfusion H/H - Peptic ulcer disease Management as above - Diabetes mellitus Consistent carbohydrate diet Obtain A1c, urine microalbumin and lipid profile, sliding scale - High hyperkalemia - corrected We will trend. - Leukocytosis Elevated lactic acid. Still no fever, cough or abdominal pain. No open wound either Await recent blood CBC despite earlier orders LDH- elevated, Alkaline phosphatase elevated. Could this be Will commence pt on imperical antibiotic with Rocephine. Doubt Multiple myeloma but will seek a hematology input - Acute on chronic renal insufficiency Anticipate improvement with IV hydration - DVT prophylaxis with SCDs only Avoid anticoagulation because of GI bleeding Disposition: DC home when patient is clinically stable Spent 25 mins Subjective Date of service: 05/13/18 Principal diagnosis: GI bleed, anemia from acute blood loss Interval history: Denies any abdominal pain. Has not had any bowel movement today. Still passed melena stool yesterday. Objective - Exam Narrative Exam: Constitutional: Well-nourished well-developed. In no distress Head: Normocephalic atraumatic Eyes: Pupils are equal round and reactive to light Nose: No enlarged turbinates, no septal deviation. Mouth: Moist mucous membranes. Neck: Supple no thyromegaly. No bruit. No JVD Heart: Regular rate and rhythm, S1-S2 normal. No rubs murmurs or gallop Lungs: Clear to auscultation bilaterally. no rales or rhonchi Abdomen: Soft, nontender. Bowel sound are present. Extremities: No edema, no cyanosis, no clubbing. Neuro: Alert oriented Oriented x3. No focal sensory or motor deficit. Skin: No rashes or hyperpigmented spots Musculoskeletal system: No joint pain or swelling Hematological: No petechia or subcutanous hemorrhages. Immunological: No multiple septic spots on the skin Lymphatic: No generalized lymphadenopathy Psychiatry: Euthymic. Calm. - Constitutional Vitals: Vital Signs - 12hr 05/12/18 05/12/18 05/12/18 19:43 20:25 21:05 Temperature 97.8 F 98.7 F Pulse Rate 79 79 73 Respiratory 20 Rate Blood Pressure 124/53 124/53 114/62 Blood Pressure [Left] O2 Sat by Pulse 100 Oximetry 05/12/18 05/12/18 05/12/18 21:35 22:05 22:35 Temperature 97.6 F 98 F 97.6 F Pulse Rate 78 73 Respiratory Rate Blood Pressure 125/63 118/63 125/62 Blood Pressure [Left] O2 Sat by Pulse Oximetry 05/12/18 05/12/18 05/12/18 23:05 23:35 23:41 Temperature 99.1 F 97.8 F Pulse Rate 71 73 71 Respiratory Rate Blood Pressure 115/59 111/61 110/57 Blood Pressure [Left] O2 Sat by Pulse Oximetry 05/13/18 05/13/18 05/13/18 01:50 03:13 04:57 Temperature Pulse Rate 78 78 Respiratory Rate Blood Pressure Blood Pressure 82/60 82/60 92/61 [Left] O2 Sat by Pulse Oximetry - Labs CBC & Chem 7: 05/13/18 06:25 05/11/18 07:01 Labs: Abnormal lab results 05/10/18 05/12/18 05/12/18 Range/Units 10:59 06:51 08:21 Hgb 8.2 L (11.8-15.2) gm/dl Hct 25.7 L D (35.5-45.6) % POC Glucose 191 H (70-105) Lactic Acid (0.7-2.0) mmol/L Lactate Dehydrogenase (91-180) units/L Crossmatch See Detail 05/12/18 05/12/18 05/12/18 Range/Units 11:49 17:02 17:48 Hgb 7.7 L (11.8-15.2) gm/dl Hct 25.0 L (35.5-45.6) % POC Glucose 226 H 312 H (70-105) Lactic Acid (0.7-2.0) mmol/L Lactate Dehydrogenase (91-180) units/L Crossmatch 05/12/18 05/12/18 05/12/18 Range/Units 19:25 19:30 20:23 Hgb (11.8-15.2) gm/dl Hct (35.5-45.6) % POC Glucose (70-105) Lactic Acid 3.90 H* 4.00 H* (0.7-2.0) mmol/L Lactate Dehydrogenase 198 H (91-180) units/L Crossmatch 05/12/18 05/12/18 Range/Units 22:43 23:53 Hgb (11.8-15.2) gm/dl Hct (35.5-45.6) % POC Glucose 123 H (70-105) Lactic Acid 2.20 H* (0.7-2.0) mmol/L Lactate Dehydrogenase (91-180) units/L Crossmatch
[2018-05-13 07:15] LABS: Basophils % (Auto) 0.2 % (0.0-1.8); Eosinophils # (Auto) 0.1 K/mm3 (0.0-0.4); Eosinophils % (Auto) 0.4 % (0.0-4.3); Hematocrit 23.6 % (35.5-45.6); Hemoglobin 7.6 gm/dl (11.8-15.2); Lymphocytes # (Auto) 2.5 K/mm3 (1.2-5.4); Lymphocytes % (Auto) 13.6 % (13.4-35.0); Mean Corpuscular HGB Conc 32 % (32-34); Mean Corpuscular Volume 81 fl (84-94); Monocytes # (Auto) 1.7 K/mm3 (0.0-0.8); Monocytes % (Auto) 9.1 % (0.0-7.3); Platelet Count 145 K/mm3 (140-440); Red Blood Count 2.91 M/mm3 (3.65-5.03); Red Cell Distribution Width 16.7 % (13.2-15.2)
[2018-05-13 07:25] LABS: INR 1.16 (0.87-1.13)
[2018-05-13 07:41] LABS: Alanine Aminotransferase 10 units/L (7-56); Albumin 2.7 g/dL (3.9-5); BUN/Creatinine Ratio 42; Blood Urea Nitrogen 42 mg/dL (9-20); Calcium 8.2 mg/dL (8.4-10.2); Hemolysis Index 8
[2018-05-13] MEDS: HumaLOG SUB-Q SCH ×4 (08:27→23:40)
[2018-05-13] MEDS: CARAFATE PO SCH ×4 (09:16→21:22)
[2018-05-13] MEDS ORDERED: AMLODIPINE BESYLATE 5 MG PO SCH (10:00)
[2018-05-13] MEDS ORDERED: ROCEPHIN/NS 1 GM/50 ML 1 GM/50 ML BAG IV SCH (10:00)
[2018-05-13] MEDS: LASIX PO SCH (13:06)
[2018-05-13] MEDS: LANOXIN PO SCH (13:07)
[2018-05-13] MEDS: COREG PO SCH ×2 (14:59→22:25)
[2018-05-13] MEDS: NORVASC PO SCH (15:00)
[2018-05-13] MEDS: ZESTRIL PO SCH (15:00)
--- NOTE | 2018-05-13 15:02 | Gastroenterology Progress Note ---
Assessment and Plan GI: UGI bleeding due to pud - stable w/o further signs bleeding - ok to switch to PPI po bid and carafate - advance diet as tolerated - ok to restart anti-coagulation in 4-5 days - ok to d/c in am if stable from GI standpoint - will sign off, call if needed Subjective Date of service: 05/13/18 Principal diagnosis: GI bleed, anemia from acute blood loss Interval history: - denies signs bleeding or other GI complaints Objective - Constitutional Vitals: Temp Pulse Resp BP Pulse Ox 97.8 F 83 18 100/53 100 05/13/18 13:05 05/13/18 13:07 05/13/18 13:05 05/13/18 13:07 05/13/18 13:05 General appearance: no acute distress - EENT Eyes: PERRL - Respiratory Respiratory: bilateral: CTA - Cardiovascular Rhythm: regular Heart Sounds: Present: S1 & S2 - Gastrointestinal General gastrointestinal: Present: soft, non-tender, non-distended - Labs CBC & Chem 7: 05/13/18 06:25 05/13/18 06:25 Labs: Laboratory Results - last 24 hr 05/10/18 05/12/18 05/12/18 10:59 17:02 17:48 WBC RBC Hgb 7.7 L Hct 25.0 L MCV MCH MCHC RDW Plt Count Lymph % (Auto) [place] % (Auto) Eos % (Auto) Baso % (Auto) Lymph # [place] # Eos # Baso # Seg Neutrophils % Seg Neutrophils # PT INR Sodium Potassium Chloride Carbon Dioxide Anion Gap BUN Creatinine Estimated GFR BUN/Creatinine Ratio Glucose POC Glucose 312 H Lactic Acid Calcium Total Bilirubin AST ALT Alkaline Phosphatase Lactate Dehydrogenase Total Protein Albumin Albumin/Globulin Ratio Blood Type B POSITIVE Antibody Screen Negative Crossmatch See Detail 05/12/18 05/12/18 05/12/18 19:25 19:30 20:23 WBC RBC Hgb Hct MCV MCH MCHC RDW Plt Count Lymph % (Auto) [place] % (Auto) Eos % (Auto) Baso % (Auto) Lymph # [place] # Eos # Baso # Seg Neutrophils % Seg Neutrophils # PT INR Sodium Potassium Chloride Carbon Dioxide Anion Gap BUN Creatinine Estimated GFR BUN/Creatinine Ratio Glucose POC Glucose Lactic Acid 3.90 H* 4.00 H* Calcium Total Bilirubin AST ALT Alkaline Phosphatase Lactate Dehydrogenase 198 H Total Protein Albumin Albumin/Globulin Ratio Blood Type Antibody Screen Crossmatch 05/12/18 05/12/18 05/13/18 22:43 23:53 06:25 WBC 18.3 H RBC 2.91 L Hgb 7.6 L Hct 23.6 L MCV 81 L MCH 26 L MCHC 32 RDW 16.7 H Plt Count 145 Lymph % (Auto) 13.6 [place] % (Auto) 9.1 H Eos % (Auto) 0.4 Baso % (Auto) 0.2 Lymph # 2.5 [place] # 1.7 H Eos # 0.1 Baso # 0.0 Seg Neutrophils % 76.7 H Seg Neutrophils # 14.0 H PT INR Sodium Potassium Chloride Carbon Dioxide Anion Gap BUN Creatinine Estimated GFR BUN/Creatinine Ratio Glucose POC Glucose 123 H Lactic Acid 2.20 H* Calcium Total Bilirubin AST ALT Alkaline Phosphatase Lactate Dehydrogenase Total Protein Albumin Albumin/Globulin Ratio Blood Type Antibody Screen Crossmatch 05/13/18 05/13/18 05/13/18 06:25 06:25 06:25 WBC RBC Hgb Hct MCV MCH MCHC RDW Plt Count Lymph % (Auto) [place] % (Auto) Eos % (Auto) Baso % (Auto) Lymph # [place] # Eos # Baso # Seg Neutrophils % Seg Neutrophils # PT 15.5 H INR 1.16 H Sodium 136 L Potassium 4.5 Chloride 107.1 H Carbon Dioxide 17 L Anion Gap 16 BUN 42 H Creatinine 1.0 Estimated GFR > 60 BUN/Creatinine Ratio 42 Glucose 118 H POC Glucose Lactic Acid 1.00 Calcium 8.2 L Total Bilirubin 0.40 AST 16 ALT 10 Alkaline Phosphatase 53 Lactate Dehydrogenase Total Protein 5.0 L Albumin 2.7 L Albumin/Globulin Ratio 1.2 Blood Type Antibody Screen Crossmatch 05/13/18 05/13/18 06:51 11:45 WBC RBC Hgb Hct MCV MCH MCHC RDW Plt Count Lymph % (Auto) [place] % (Auto) Eos % (Auto) Baso % (Auto) Lymph # [place] # Eos # Baso # Seg Neutrophils % Seg Neutrophils # PT INR Sodium Potassium Chloride Carbon Dioxide Anion Gap BUN Creatinine Estimated GFR BUN/Creatinine Ratio Glucose POC Glucose 127 H 242 H Lactic Acid Calcium Total Bilirubin AST ALT Alkaline Phosphatase Lactate Dehydrogenase Total Protein Albumin Albumin/Globulin Ratio Blood Type Antibody Screen Crossmatch
[2018-05-14 04:39] LABS: Basophils # (Auto) 0.1 K/mm3 (0.0-0.1); Basophils % (Auto) 0.5 % (0.0-1.8); Eosinophils # (Auto) 0.2 K/mm3 (0.0-0.4); Eosinophils % (Auto) 1.3 % (0.0-4.3); Hematocrit 21.5 % (35.5-45.6); Hemoglobin 6.9 gm/dl (11.8-15.2); Lymphocytes # (Auto) 3.1 K/mm3 (1.2-5.4); Lymphocytes % (Auto) 17.9 % (13.4-35.0); Mean Corpuscular HGB Conc 32 % (32-34); Mean Corpuscular Volume 82 fl (84-94); Monocytes % (Auto) 11.8 % (0.0-7.3); Platelet Count 140 K/mm3 (140-440); Red Blood Count 2.62 M/mm3 (3.65-5.03); Red Cell Distribution Width 16.9 % (13.2-15.2)
[2018-05-14 05:06] LABS: Alanine Aminotransferase 15 units/L (7-56); Albumin 2.5 g/dL (3.9-5); BUN/Creatinine Ratio 30; Blood Urea Nitrogen 27 mg/dL (9-20); Calcium 8.1 mg/dL (8.4-10.2); Hemolysis Index 4
--- NOTE | 2018-05-14 07:09 | Progress Note ---
Assessment and Plan Patient is an 82-year-old gentleman who has a history of recurrent GI bleeding from duodenal ulcer last one being in 2016, hypertension, congestive heart failure status post AICD placement 10 years ago, coronary artery disease status post stent placement, diabetes, DVT, gastroesophageal reflux disease, and arthritis presented to my office yesterday with a history of melena, feeling weak and fatigued. Patient could not maintain an alert moment in the office, always falling asleep in between discussions. Patient was also found to be hypertensive. EMS was called in. Patient was transfered to the emergency department of [facility] where blood pressure was found to be 66/39. He was given 500 mL bolus of normal saline. Blood pressure improved to 110/54. Admission was requested. Patient denies anyh persistent abdominal pain, though occassional epigastric pain some days prior to presentation. Nauseated but no vomiting. Denies any chest pain, orthopnea or paroxysmal nocturnal dyspnea. In emergency department hemoglobin was 13.7 Hct 42.9. Hyperkalemia of 5.5. Leukocytosis of 18.9. BUN was 58 creatinine was 1.2. Admission was requested. GI consult was obtained. EGD was done. A deep cretered 2 cm ulcer was identified in the anterior wall of the duodenum. No active bleeding. Multiple biopsies taken. Patient was placed on IV Protonix with Carafate. EGD done. 2cm duodenal ulcer identified. biopsies taken Assessment and plan - GI bleeding from peptic ulcer EGD showed 2 cm ulcer in the duodenum. still be on clear liquid Continue with IV Protonix, sucralfate. Hold all anti-coagulation on antiplatelet - Anemia from bleeding duodenal ulcer s/p blood transfusion of one unit. Hgb 6.9 today Will transfuse 2 more units f/u post transfusion H/H - Peptic ulcer disease Management as above - Diabetes mellitus Consistent carbohydrate diet Obtain A1c, urine microalbumin and lipid profile, sliding scale - High hyperkalemia - corrected We will trend. - Leukocytosis Elevated lactic acid. Still no fever, cough or abdominal pain. No open wound either Await recent blood CBC despite earlier orders LDH- elevated, Alkaline phosphatase elevated. Could this be Will commence pt on imperical antibiotic with Rocephine. Doubt Multiple myeloma but will seek a hematology input - Acute on chronic renal insufficiency Anticipate improvement with IV hydration - DVT prophylaxis with SCDs only Avoid anticoagulation because of GI bleeding Disposition: DC home when patient is clinically stable Spent 25 mins Subjective Date of service: 05/14/18 Principal diagnosis: GI bleed, anemia from acute blood loss Interval history: Denies any abdominal pain. Still passed melena stool yesterday. Hgb dropped to 6.9 Objective - Exam Narrative Exam: Constitutional: Well-nourished well-developed. In no distress Head: Normocephalic atraumatic Eyes: conjuctival Palor. Pupils are equal round and reactive to light Nose: No enlarged turbinates, no septal deviation. Mouth: Moist mucous membranes. Neck: Supple no thyromegaly. No bruit. No JVD Heart: Regular rate and rhythm, S1-S2 normal. No rubs murmurs or gallop Lungs: Clear to auscultation bilaterally. no rales or rhonchi Abdomen: Soft, nontender. Bowel sound are present. Extremities: No edema, no cyanosis, no clubbing. Neuro: Alert oriented Oriented x3. No focal sensory or motor deficit. Skin: No rashes or hyperpigmented spots Musculoskeletal system: No joint pain or swelling Hematological: No petechia or subcutanous hemorrhages. Immunological: No multiple septic spots on the skin Lymphatic: No generalized lymphadenopathy Psychiatry: Euthymic. Calm. - Constitutional Vitals: Vital Signs - 12hr 05/13/18 05/13/18 05/14/18 19:42 22:25 02:21 Temperature 97.7 F 98.7 F Pulse Rate 77 77 79 Respiratory 20 18 Rate Blood Pressure 103/48 103/48 111/60 O2 Sat by Pulse 99 98 Oximetry - Labs CBC & Chem 7: 05/14/18 03:46 05/14/18 03:46 Labs: Abnormal lab results 05/13/18 05/13/18 05/13/18 Range/Units 06:25 06:25 06:25 WBC 18.3 H (4.5-11.0) K/mm3 RBC 2.91 L (3.65-5.03) M/mm3 Hgb 7.6 L (11.8-15.2) gm/dl Hct 23.6 L (35.5-45.6) % MCV 81 L (84-94) fl MCH 26 L (28-32) pg RDW 16.7 H (13.2-15.2) % [place] % (Auto) 9.1 H (0.0-7.3) % [place] # 1.7 H (0.0-0.8) K/mm3 Seg Neutrophils % 76.7 H (40.0-70.0) % Seg Neutrophils # 14.0 H (1.8-7.7) K/mm3 PT 15.5 H (12.2-14.9) Sec. INR 1.16 H (0.87-1.13) Sodium 136 L (137-145) mmol/L Chloride 107.1 H (98-107) mmol/L Carbon Dioxide 17 L (22-30) mmol/L BUN 42 H (9-20) mg/dL Glucose 118 H (75-100) mg/dL POC Glucose (70-105) Calcium 8.2 L (8.4-10.2) mg/dL Total Protein 5.0 L (6.3-8.2) g/dL Albumin 2.7 L (3.9-5) g/dL 05/13/18 05/13/18 05/13/18 Range/Units 06:51 11:45 16:37 WBC (4.5-11.0) K/mm3 RBC (3.65-5.03) M/mm3 Hgb (11.8-15.2) gm/dl Hct (35.5-45.6) % MCV (84-94) fl MCH (28-32) pg RDW (13.2-15.2) % [place] % (Auto) (0.0-7.3) % [place] # (0.0-0.8) K/mm3 Seg Neutrophils % (40.0-70.0) % Seg Neutrophils # (1.8-7.7) K/mm3 PT (12.2-14.9) Sec. INR (0.87-1.13) Sodium (137-145) mmol/L Chloride (98-107) mmol/L Carbon Dioxide (22-30) mmol/L BUN (9-20) mg/dL Glucose (75-100) mg/dL POC Glucose 127 H 242 H 229 H (70-105) Calcium (8.4-10.2) mg/dL Total Protein (6.3-8.2) g/dL Albumin (3.9-5) g/dL 0305/14/18 05/14/18 Range/Units 21:31 03:46 03:46 WBC 17.1 H (4.5-11.0) K/mm3 RBC 2.62 L (3.65-5.03) M/mm3 Hgb 6.9 L (11.8-15.2) gm/dl Hct 21.5 L (35.5-45.6) % MCV 82 L (84-94) fl MCH 26 L (28-32) pg RDW 16.9 H (13.2-15.2) % [place] % (Auto) 11.8 H (0.0-7.3) % [place] # 2.0 H (0.0-0.8) K/mm3 Seg Neutrophils % (40.0-70.0) % Seg Neutrophils # 11.8 H (1.8-7.7) K/mm3 PT (12.2-14.9) Sec. INR (0.87-1.13) Sodium (137-145) mmol/L Chloride 107.1 H (98-107) mmol/L Carbon Dioxide 20 L (22-30) mmol/L BUN 27 H (9-20) mg/dL Glucose 129 H (75-100) mg/dL POC Glucose 252 H (70-105) Calcium 8.1 L (8.4-10.2) mg/dL Total Protein 4.8 L (6.3-8.2) g/dL Albumin 2.5 L (3.9-5) g/dL
[2018-05-14] MEDS ORDERED: NACL 0.9% 500 ML 500 ML IV ONE (08:00)
[2018-05-14] MEDS: CARAFATE PO SCH ×4 (08:39→23:13)
[2018-05-14] MEDS: HumaLOG SUB-Q SCH ×3 (08:39→17:17)
[2018-05-14] MEDS: COREG PO SCH ×2 (09:52→23:13)
[2018-05-14] MEDS: LANOXIN PO SCH (09:52)
[2018-05-14] MEDS: LASIX PO SCH (09:52)
[2018-05-14] MEDS: ZESTRIL PO SCH (09:52)
[2018-05-14] MEDS: ROCEPHIN/NS 1 GM/50 ML 1 GM/50 ML BAG IV SCH (09:53)
[2018-05-14] MEDS: NORVASC PO SCH (11:04)
[2018-05-14] MEDS: NACL 0.9% 1000 ML 1,000 ML IV SCH (17:17)
[2018-05-15 05:09] LABS: Basophils # (Auto) 0.1 K/mm3 (0.0-0.1); Basophils % (Auto) 0.4 % (0.0-1.8); Eosinophils # (Auto) 0.2 K/mm3 (0.0-0.4); Eosinophils % (Auto) 1.2 % (0.0-4.3); Hematocrit 28.4 % (35.5-45.6); Hemoglobin 9.4 gm/dl (11.8-15.2); Lymphocytes # (Auto) 2.7 K/mm3 (1.2-5.4); Lymphocytes % (Auto) 17.6 % (13.4-35.0); Mean Corpuscular HGB Conc 33 % (32-34); Mean Corpuscular Volume 84 fl (84-94); Monocytes # (Auto) 1.7 K/mm3 (0.0-0.8); Platelet Count 134 K/mm3 (140-440); Red Blood Count 3.39 M/mm3 (3.65-5.03); Red Cell Distribution Width 17.3 % (13.2-15.2)
[2018-05-15 05:34] LABS: Alanine Aminotransferase 19 units/L (7-56); Albumin 2.8 g/dL (3.9-5); BUN/Creatinine Ratio 19; Blood Urea Nitrogen 15 mg/dL (9-20); Hemolysis Index 5
[2018-05-15] MEDS: HumaLOG SUB-Q SCH ×2 (09:20→12:40)
[2018-05-15] MEDS: CARAFATE PO SCH ×2 (10:46→12:44)
[2018-05-15] MEDS: ROCEPHIN/NS 1 GM/50 ML 1 GM/50 ML BAG IV SCH (10:46)
[2018-05-15] MEDS: LANOXIN PO SCH (10:47)
[2018-05-15] MEDS: ZESTRIL PO SCH (10:47)
[2018-05-15] MEDS: NORVASC PO SCH (10:48)
[2018-05-15] MEDS: LASIX PO SCH (10:48)
[2018-05-15] MEDS: COREG PO SCH (10:48)
--- NOTE | 2018-05-15 13:16 | Discharge Summary ---
Providers - Providers Date of Admission: 05/10/18 13:44 Date of discharge: 05/15/18 Attending physician: ELIZABETH CHATMAN 05/10/18 13:19 Consult to Physician [CONS] Routine Comment: called office/ harley Consulting Provider: WILDER GARZA Physician Instructions: Reason For Exam: GI bleed 05/11/18 11:28 Physical Therapy Evaluation and Treat [CONS] Routine Comment: Reason For Exam: weakness Primary care physician: ELIZABETH CHATMAN Hospitalization Reason for admission: GI bleeding Condition: Fair Pertinent studies: Abdomen x-ray that was unremarkable Procedures: EGD that showed 2 cm duodenal or side. No active bleeding but no evidence of stigmata Hospital course: Patient is an 82-year-old gentleman who has a history of recurrent GI bleeding from duodenal ulcer last one being in 2016, hypertension, congestive heart failure status post AICD placement 10 years ago, coronary artery disease status post stent placement, diabetes, DVT, gastroesophageal reflux disease, and arthritis presented to my office yesterday with a history of melena, feeling weak and fatigued. Patient could not maintain an alert moment in the office, always falling asleep in between discussions. Patient was also found to be hypertensive. EMS was called in. Patient was transfered to the emergency department of [facility] where blood pressure was found to be 66/39. He was given 500 mL bolus of normal saline. Blood pressure improved to 110/54. Admission was requested. Patient denies anyh persistent abdominal pain, though occassional epigastric pain some days prior to presentation. Nauseated but no vomiting. Denies any chest pain, orthopnea or paroxysmal nocturnal dyspnea. In emergency department hemoglobin was 13.7 Hct 42.9. Hyperkalemia of 5.5. Leukocytosis of 18.9. BUN was 58 creatinine was 1.2. Admission was requested. GI consult was obtained. EGD was done. A deep cretered 2 cm ulcer was identified in the anterior wall of the duodenum. No active bleeding. Multiple biopsies taken. Patient was placed on IV Protonix with Carafate. Patient continued to have melena stool. Had a total of 3 units of packed red blood cell transfused. Hemoglobin that dropped to 6.9 from 10.5 on admission improved to 9.4. No vomiting and S2. Possible. Patient feels better. No abdominal pain. These have been discharged today to follow with primary care physician. Patient had persistent leukocytosis while on admission. Blood culture and urine culture as well as x-rays were unremarkable for any knee incriminating source of the leukocytosis. Hematology consult was obtained to rule out any follow-up leukemia. He will read patient is a on outpatient basis as Y placenta was 18.9 on admission and only minimally dropped to 15.4 this point. Patient had no fever. No stomach pain or cough. No dysuria. It is likely represents superimposed on outpatient basis. He is within [facility] detention facility as presented this by himself. He still is on anticoagulation for the next one week. Patient stated that he has most of his home medication. He definitely will in addition Protonix and significant to his current medication regimen. He is advised to continue with Saul Cuellar for his diabetic management as well as beta blockers and diuretics Jules for his congestive heart failure. His flow would be been discharged from detention facility in one week Disposition: [id number] Time spent for discharge: 40 urabave07 mins - Discharge Diagnoses (1) GI bleeding Status: Acute Qualifiers: GI bleed type/associated pathology: melena Qualified Code(s): K92.1 - Melena Comment: resove (2) Anemia Status: Acute Qualifiers: Anemia type: unspecified type Qualified Code(s): D64.9 - Anemia, unspecified Comment: Secondary to acute blood loss. (3) Chronic blood loss anemia Status: Acute (4) Chronic kidney disease, stage 3 Status: Acute (5) Diabetes mellitus Status: Acute Qualifiers: Diabetes mellitus type: type 2 Chronic kidney disease stage: stage 3 (moderate) Qualified Code(s): E11.22 - Type 2 diabetes mellitus with diabetic chronic kidney disease (6) Erosive esophagitis Status: Acute (7) CHF (congestive heart failure) Status: Chronic Comment: stable Core Measure Documentation - Palliative Care Palliative Care/ Comfort Measures: Not Applicable - Core Measures Any of the following diagnoses?: none Exam - Physical Exam Narrative exam: Constitutional: Well-nourished well-developed.In no distress Head: Normocephalic atraumatic Eyes: conjuctival Palor. Pupils are equal round and reactive to light Nose: No enlarged turbinates, no septal deviation. Mouth: Moist mucous membranes. Neck: Supple no thyromegaly. No bruit. No JVD Heart: Regular rate and rhythm, S1-S2 normal. No rubs murmurs or gallop Lungs: Clear to auscultation bilaterally. no rales or rhonchi Abdomen: Soft, nontender. Bowel sound are present. Extremities: No edema, no cyanosis, no clubbing. Neuro: Alert oriented Oriented x3. No focal sensory or motor deficit. Skin: No rashes or hyperpigmented spots Musculoskeletal system: No joint pain or swelling Hematological: No petechia or subcutanous hemorrhages. Immunological: No multiple septic spots on the skin Lymphatic: No generalized lymphadenopathy Psychiatry: Euthymic. Calm. - Constitutional Vitals: Temp Pulse Resp BP Pulse Ox 98.2 F 72 20 135/77 96 05/15/18 07:48 05/15/18 10:47 05/15/18 07:48 05/15/18 10:48 05/15/18 07:48 Plan Activity: advance as tolerated Weight Bearing Status: Weight Bear as Tolerated Diet: diabetic Follow up with: PRIMARY CARE, [Referring] - 3-5 Days Forms: Accompanied Note Prescriptions: Sucralfate [Carafate] 1 gm PO ACHS #90 tablet Carvedilol [Coreg] 25 mg PO BID #60 tablet Pantoprazole [Protonix] 40 mg PO QDAY #30 tablet
[2018-05-15 14:59] VITALS: BP 118/58
== END 2018-05-15 16:15 | disposition home health service (06) | DRG 314 ==
LOC: ED 10:30 → 2B-ACE 13:44
PROVIDERS: ADMIT Family Medicine; ATTEND Family Medicine
PROC: 0DB98ZX Excision of Duodenum, Via Natural or Artificial Opening Endoscopic, Diagnostic (ICD-10-PCS; principal; 2018-05-10)
PROC: 0DB78ZX Excision of Stomach, Pylorus, Via Natural or Artificial Opening Endoscopic, Diagnostic (ICD-10-PCS; 2018-05-10)
PROC: 0DB68ZX Excision of Stomach, Via Natural or Artificial Opening Endoscopic, Diagnostic (ICD-10-PCS; 2018-05-10)
PROC: 30233N1 Transfusion of Nonautologous Red Blood Cells into Peripheral Vein, Percutaneous Approach (ICD-10-PCS; 2018-05-12)
DX: I95.9 Hypotension, unspecified (principal); K26.4 Chronic or unspecified duodenal ulcer with hemorrhage; I13.0 Hypertensive heart and chronic kidney disease with heart failure and stage 1 through stage 4 chronic kidney disease, or unspecified chronic kidney disease; D62 Acute posthemorrhagic anemia; K22.10 Ulcer of esophagus without bleeding; K92.1 Melena; E87.5 Hyperkalemia; E11.22 Type 2 diabetes mellitus with diabetic chronic kidney disease; N18.3 Chronic kidney disease, stage 3 (moderate); I50.9 Heart failure, unspecified; I25.10 Atherosclerotic heart disease of native coronary artery without angina pectoris; K21.9 Gastro-esophageal reflux disease without esophagitis; Z86.718 Personal history of other venous thrombosis and embolism; Z79.82 Long term (current) use of aspirin; Z79.4 Long term (current) use of insulin; Z95.810 Presence of automatic (implantable) cardiac defibrillator; Z79.899 Other long term (current) drug therapy; Z95.5 Presence of coronary angioplasty implant and graft; Z85.46 Personal history of malignant neoplasm of prostate; Z87.891 Personal history of nicotine dependence
CPT/HCPCS: 36415; 74019; 80053; 82140; 82962; 83615; 83690; 85014; 85018; 85025; 85610; 85730; 86850; 86900; 86901; 86920; 87040; 87086; 88305; 88342; 93005; 93010; 96361; 96365; 96375; G0378; C9113; J0696; J1815; J2250; J2370; J2704; J7030; J7040; P9016